=== PATIENT | female | born 1980 | race Caucasian/White ===

== ENCOUNTER 2017-04-01 08:21 | Emergency (ER) | payer OTHER ==
[2017-04-01] MEDS ORDERED: KETOROLAC TROMETHAMINE 30 MG/ML VIAL IM ONE (09:08)
[2017-04-01] MEDS ORDERED: ORPHENADRINE CITRATE 30 MG/ML VIAL IM ONE (09:09)
--- OUTSIDE RECORDS SUMMARY | 2017-04-01 09:14 | XMS REPORT | Continuity of Care Document ---
:1980 Author Organization [facility] ([facility]) Address [address] [place] [address] Phone [phone] Care Team Providers Name Role Phone Miguel A Dodge Primary Care Provider [phone] Source Comments This disclosure is being made pursuant to the Care Everywhere program, applicable federal and state laws, and may not contain all informaitonavailable regarding this patient.[facility] ([facility]) Active Allergies and Adverse Reactions Not on File Current Medications Not on file Active Problems Not on file Social History Tobacco Use Types Packs/Day Years Used Date Never Assessed Plan of Care Health Maintenance Due Date Last Done Comments Hepatitis B Vaccine (1 of 3 - Primary Series) 1980 Tdap Vaccine 1990 Lipid Disorder Screening 1997 MMR Vaccine 1997 Td Vaccine 1997 Cervical Cancer Screening 2009 Influenza Vaccine: Seasonal (#1) 06/09/2016 Results from Last 3 Months Not on file
[2017-04-01 09:30] VITALS: BP 118/71
[2017-04-01] MEDS ORDERED: ORPHENADRINE CITRATE 30 MG/ML VIAL ONE (09:32)
[2017-04-01] MEDS ORDERED: KETOROLAC TROMETHAMINE 60 MG/2 ML VIAL IM ONE (09:32)
--- NOTE | 2017-04-01 09:37 | ERNOTE ---
Back Pain ER HPI Presenting Symptoms: injury/pain to back Time Seen by Provider: 04/01/17 09:03 Source: patient Exam Limitations: no limitations Immunizations: IMMUNIZATION HX Immunizations Up to Date Yes History of Influenza Vaccine No Hx Pneumococcal Vaccination No Allergies/Adverse Reactions: Allergies aspirin Allergy (Verified 04/01/17 08:35) Itching Penicillins Allergy (Verified 04/01/17 08:35) Hives Home Medications: HOME MEDICATIONS Alprazolam [Xanax] 0.25 mg PO DAILY 04/01/17 [Last Taken Unknown] Cyclobenzaprine HCl [Flexeril] 10 mg PO BID 04/01/17 [Last Taken Unknown] Cyclobenzaprine HCl [Flexeril] 10 mg PO TID PRN #30 tab 04/01/17 [Last Taken Unknown] Venlafaxine HCl [Effexor] 150 mg PO DAILY 04/01/17 [Last Taken Unknown] traMADol HCL [Ultram] 50 mg PO QID PRN #20 tablet 04/01/17 [Last Taken Unknown] Narrative: Pt was at work this morning and injured her low back. She is unsure of the exact mechanism of action however. She states she does a fair amount of lifting and straining and somehow in the course of her regular duties she sustained back pain and spasm. Timing: Reports: constant Quality/Severity: Reports: moderate Location of pain: Reports: lower back Activities at Onset: Reports: activity Recent Injury?: Reports: no Possible Precipitating Factor: Reports: lifting, turning/bending Modifying Factors - (Improves): Reports: nothing Modifying Factors - (Worsens): Reports: movement to right, movement to left, movement flexion Associated Symptoms: Reports: none Prior Treament: Reports: recently seen Review of Systems - Review of Systems Constitutional: Present: See HPI EYE: Present: no symptoms reported ENT: Present: no symptoms reported Respiratory: Present: no symptoms reported Cardiology: Present: no symptoms reported Gastrointestinal/Abdominal: Present: no symptoms reported Genitourinary: Present: no symptoms reported Musculoskeletal: Present: back pain, muscle pain, muscle stiffness Skin: Present: no symptoms reported Neurological: Present: no symptoms reported Endocrine: Present: no symptoms reported Hematologic/Lymphatic: Present: no symptoms reported Psych: Present: no symptoms reported - Patient's Past Medical History Patient History - Medical: Anxiety, Chronic Pain, Depression Patient History - Cardiac/Respiratory: No pertinent hx Patient History - Cancer: No Hx of Cancer Patient History - Surgical Procedures: Gastric Bypass Patient History - Other: None LMP (females 10-50): last week - Social History Living Situations: home Abuse History: No History of abuse Psych History: Hx of Anxiety, Hx of Depression, Current tx/ever been on anti- depressants or anti-anxiety meds Smoking Status: Current every day smoker Have you smoked in the past 12 months: Yes Alcohol Use: occasionally Drug Use: none - Immunizations Immunizations Up to Date: Yes Hx Pneumococcal Vaccination: No History of Influenza Vaccine: No Physical Exam - Physical Exam General Appearance: Present: wd/wn, alert, moderate distress Eye Exam: Normal inspection: bilateral, PERRL: bilateral Ears, Nose, Throat: Present: normal ENT inspection, H, normal pharynx Neck: Present: normal inspection, nontender Respiratory: Present: no respiratory distress, normal breath sounds, no accessory muscle use, chest nontender, lungs clear Cardiovascular/Chest: Present: regular rate, rhythm, no murmur, normal peripheral pulses Gastrointestinal/Abdominal: Present: normal bowel sounds, nontender, nondistended, soft, no organomegaly Rectal Exam: Present: deferred Back Exam: Present: decreased range of motion, muscle spasm Extremity Exam: Present: normal inspection, non-tender, no edema, normal range of motion Neurological Exam: Present: alert, oriented, normal mood/affect Skin Exam: Present: normal color, warm/dry Lymphatic Exam: Present: no adenopathy ED Progress - Vital Signs Patient's Vital Signs:: I have reviewed the patient's vital signs. Vital Signs: Vital Signs 04/01/17 04/01/17 08:25 09:29 Temperature 37.2 C 36.7 C Pulse Rate 73 70 Respiratory 16 16 Rate Blood Pressure 142/80 118/71 O2 Sat by Pulse 100 100 Oximetry - X-Ray X-Ray #1 X-Ray: lumbosacral - Progress/Reassessment Chief Complaint: Back Pain Progress:: Improved Plan - Plan Plan: Patient felt better after the Toradol and Norflex injections. She already has a prescription for Flexeril that she's taken 2 times a day will give her an additional prescription so she can take it 3 times a day. She will also be given a prescription for Naprosyn and a referral to the occupational health clinic. Patient be started on light duty at work and she discharged in stable condition. Departure Clinical Impression: Lumbar strain Qualifiers: Encounter type: initial encounter Qualified Code(s): S39.012A - Strain of muscle, fascia and tendon of lower back, initial encounter - Departure Disposition: Home self-care Condition: Good Instructions: Back Pain, Adult, Muscle Cramps and Spasms, [id number] Referrals: Ashwini Odonnell DO [Primary Care Provider] - Prescriptions: Cyclobenzaprine HCl [Flexeril] 10 mg PO TID PRN #30 tab PRN Reason: MUSCLE SPASMS traMADol HCL [Ultram] 50 mg PO QID PRN #20 tablet PRN Reason: Moderate Pain
== END 2017-04-01 10:43 | disposition home or self-care (01) ==
LOC: ER 08:21
DX: S39.012A Strain of muscle, fascia and tendon of lower back, initial encounter (principal); Z72.0 Tobacco use; F41.8 Other specified anxiety disorders; G89.29 Other chronic pain